=== PATIENT | female | born 1955 | race Caucasian/White ===

== ENCOUNTER 2017-08-27 05:30 | Day surgery (SDC) | payer OTHER ==
[~2017-08-27] VITALS: Ht 162.6 cm; Wt 63.5 kg
[~2017-08-27 05:30] MED LIST: CYTOMEL5 MCG PO; LO-DOSE ASPIRIN81 M1 PO; LOTENSIN40 MG PO; MS CONTIN,ORAMO15 M1 PO; NORCO 7.5/321 TABLET PO
[2017-08-27 06:34] VITALS: BP 163/72
[2017-08-27 09:24] VITALS: BP 182/79
[2017-08-27 10:06] VITALS: BP 168/80
== END 2017-08-27 10:08 | disposition home or self-care (01) ==
LOC: SDC 05:30
DX: H35.342 Macular cyst, hole, or pseudohole, left eye (principal); H35.372 Puckering of macula, left eye; I10 Essential (primary) hypertension; M32.9 Systemic lupus erythematosus, unspecified; D86.0 Sarcoidosis of lung; R01.1 Cardiac murmur, unspecified; M79.7 Fibromyalgia; G62.9 Polyneuropathy, unspecified; G47.30 Sleep apnea, unspecified; E03.9 Hypothyroidism, unspecified; Z79.82 Long term (current) use of aspirin
CPT/HCPCS: J0690; J1100; J2405; J3300